=== PATIENT | female | born 1960 | race Caucasian/White ===

== ENCOUNTER 2016-12-21 22:15 | Emergency (ER) | payer OTHER ==
[~2016-12-21] VITALS: Ht 149.9 cm; Wt 59.0 kg
[2016-12-21 22:39] VITALS: BP 128/69; PULSE 64; RESP 18; TEMP 97.6; O2SAT 97
--- NOTE | 2016-12-21 23:11 | NUR ---
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
[2016-12-22 00:13] VITALS: BP 130/71; PULSE 68; RESP 18; TEMP 98; O2SAT 98
--- NOTE | 2016-12-22 00:14 | NUR ---
Patient given written and verbal discharge instructions and verbalizes understanding. ER MD discussed with patient the results and treatment provided. Given copies of tests performed in ER. Patient in stable condition. ID arm band removed. Rx of IBUPROFEN given. Patient educated on pain management and to follow up with PMD. Pain Scale . Opportunity for questions provided and answered.
== END 2016-12-22 00:14 | disposition home or self-care (01) ==
LOC: SED 22:15
DX: S16.1XXA Strain of muscle, fascia and tendon at neck level, initial encounter (principal); V89.2XXA Person injured in unspecified motor-vehicle accident, traffic, initial encounter; Y93.89 Activity, other specified; Y99.8 Other external cause status; Y92.89 Other specified places as the place of occurrence of the external cause
CPT/HCPCS: 72050-TC; 72100-TC; 99284